=== PATIENT | male | born 1945 | race Caucasian/White ===

== ENCOUNTER 2016-10-09 14:57 | Observation (INO) | payer OTHER ==
--- NOTE | 2016-10-09 15:15 | PDOC ---
History of Present Illness - General History Source: Patient, Manifold Builder Used Exam Limitations: No Limitations, Language Barrier - History of Present Illness Initial Comments: 10/09/16 15:55 The patient is a 70 year old male brought via EMS, with a significant past medical history of varicose veins in left lower extremity, who presents to the emergency department with chest pain for the past 8 hours. He describes his chest pain as a pressure/squeezing type of sensation, localized on the left side of his chest pain, without radiation or modifying factors. He states that he was sitting when the pain started, lasting roughly 3 hours and has subsided in intensity. He denies taking anything for the pain. He states that he get chest pains usually every 3-4 months, which he attributes to stress. He denies ever having a stress test. He states that his family doctor advised that he see a bartender server for a workup but the patient decided against it as he was feeling better. He states that he takes a daily baby aspirin but no other medications. A assembler deck and hull was used for this patient interaction. [place] mcallister ID# [id number] The patient denies shortness of breath, headache and dizziness. Denies fever, chills, nausea, vomit, diarrhea and constipation. Allergies: None Past surgical history: Left lower extremity surgery Social history: He reports occasional alcohol use. No tobacco or drug use reported <Malik Manning - Last Filed: 10/09/16 16:46> - General History Source: Manifold Builder Used <Herman Dumont - Last Filed: 10/09/16 17:34> - General Chief Complaint: Chest Pain Stated Complaint: CHEST PAIN Time Seen by Provider: 10/09/16 15:12 Past History <Malik Manning - Last Filed: 10/09/16 16:46> <Herman Dumont - Last Filed: 10/09/16 17:34> - Past Medical History Allergies/Adverse Reactions: Allergies Allergy/AdvReac Type Severity Reaction Status Date / Time No Known Allergies Allergy Verified 10/09/16 15:20 Home Medications: Ambulatory Orders Aspirin [Aspirin EC] 81 mg PO DAILY 10/09/16 Review of Systems - Review of Systems Constitutional: No: Chills, Fever Respiratory: No: Cough, Shortness of Breath Cardiac (ROS): Yes: Chest Pain. No: Lightheadedness ABD/GI: No: Nausea, Vomiting Integumentary: No: Rash All Other Systems: Reviewed and Negative <Herman Dumont - Last Filed: 10/09/16 17:34> *Physical Exam - Vital Signs Last Vital Signs Temp Pulse Resp BP Pulse Ox 97.4 F L 85 18 146/80 100 10/09/16 14:57 10/09/16 14:57 10/09/16 14:57 10/09/16 14:57 10/09/16 14:57 - Physical Exam Comments: 10/09/16 15:55 GENERAL: The patient is awake, alert, and fully oriented, in no acute distress. HEAD: Normal with no signs of trauma. EYES: Pupils equal, round and reactive to light, extraocular movements intact, sclera anicteric, conjunctiva clear with no pallor. ENT: Ears normal, nares patent, oropharynx clear without exudates. Moist mucous membranes. NECK: Normal range of motion, supple without lymphadenopathy, JVD, or masses. LUNGS: Breath sounds equal, clear to auscultation bilaterally. No wheeze/ crackles. HEART: Regular rate and rhythm, normal S1 and S2 without murmur or rub. ABDOMEN: Soft/nontender/nondistended. BS wnl. No guarding or rebound. No palpable masses. No hepatosplenomegaly. EXTREMITIES: +Left leg slightly larger than right, trace pretibial edema on the left, varicosities left greater than right. Normal range of motion. No clubbing or cyanosis. No cords, erythema, or tenderness. NEUROLOGICAL: Cranial nerves II through XII grossly intact. Normal speech, normal gait. PSYCH: Normal mood, normal affect. SKIN: Warm, Dry, normal turgor, no rashes or lesions noted. <Malik Manning - Last Filed: 10/09/16 16:46> Heart Score/ECG Review #1 ECG reviewed & interpreted by me at: 15:13 General ECG Interpretation: Sinus Rhythm, Normal Rate (1513), Normal Intervals ( qtc 432), No acute ischemic changes <Heramn Dumont - Last Filed: 10/09/16 17:34> ED Treatment Course - LABORATORY CBC & Chemistry Diagram: 10/09/16 15:54 10/09/16 15:54 - RADIOLOGY Radiograph Interpretation: 10/09/16 16:17 Chest X-Ray Reviewed by: Dr. Faye Gonsalez Impression: No acute cardiopulmonary disease is present. Vascular Study left lower extremity Reviewed by: Dr. Faye Gonsalez Impression: There is no evidence of deep venous thromboses in the left lower extremty. - Medications Given in the ED: ED Medications Discontinued Medications Generic Name Dose Route Start Last Admin Trade Name Angi PRN Reason Stop Dose Admin Aspirin 162 mg 10/09/16 15:19 10/09/16 15:30 Asa - PO 10/09/16 15:20 162 mg ONCE ONE Administration <Malik Manning - Last Filed: 10/09/16 16:46> - LABORATORY CBC & Chemistry Diagram: 10/09/16 15:54 10/09/16 15:54 <Herman Dumont - Last Filed: 10/09/16 17:34> Medical Decision Making - Medical Decision Making 10/09/16 15:40 A portion of this note was documented by scribe services under my direction. I have reviewed the details of the note, within reason, and agree with the documentation with the following case summary and management plan written by me. 70-year-old male with no significant past medical history presents to the ED with chest pain. Patient was in his usual state of normal health, while at work developed left chest squeezing discomfort without any other associated symptoms , symptoms have been persistent for about 3 hours so he presents for evaluation. No history of exertional chest pain or dyspnea, never had a stress test or catheterization, does have chronic left lower extremity varicosities. Vital signs normal. Well-appearing, comfortable Exam is within normal limits other than left lower extremity trace edema with varicosities 70-year-old male with chest pain at rest and nonischemic EKG. Heart score overall was low, but given no history of stress test will rule out ACS. Clinically not consistent with PE, but will need to rule out DVT. Labs, EKG Chest x-ray Aspirin Left lower cavity Doppler Admission for cardiac workup 10/09/16 17:05 Labs wnl, troponin negative, Cr 1.5 without prior available for comparison. CXR wnl. Doppler negative for DVT. Will proceed with admission as planned for cardiac evaluation. 10/09/16 17:[address] Duffy, covered by Dr. Queen. Awaiting callback. <Herman Dumont - Last Filed: 10/09/16 17:34> *DC/Admit/Observation/Transfer - Attestations Scribe Attestion: 10/09/16 15:56 Documentation prepared by Malik Manning, acting as medical technician assistant for Herman Dumont MD. <Malik Manning - Last Filed: 10/09/16 16:46> - Discharge Dispostion Admit: Yes <Herman Dumont - Last Filed: 10/09/16 17:34> Diagnosis at time of Disposition: Precordial chest pain
[2016-10-09] MEDS ORDERED: ASPIRIN 81 MG CHEWABLE TABLETS PO ONE (15:19)
[2016-10-09] MEDS ORDERED: ASPIRIN 81 MG CHEWABLE TABLETS ONE (15:29)
--- NOTE | 2016-10-09 15:44 | EKG ---
Test Reason : Blood Pressure : / mmHG Vent. Rate : 082 BPM Atrial Rate : 082 BPM P-R Int : 146 ms QRS Dur : 080 ms QT Int : 370 ms P-R-T Axes : 040 -05 026 degrees QTc Int : 432 ms NORMAL SINUS RHYTHM NORMAL ECG NO PREVIOUS ECGS AVAILABLE Confirmed by SYLWIA YBARRA MD ([id number]) on 10/09/2016 3:44:23 PM Referred By: Confirmed By:SYLWIA YBARRA MD
[2016-10-09 16:30] LABS: BASOPHIL 0.2 % (0-2.0); EOSINOPHIL 0.9 % (0-4.5); MCH 29.6 pg (25.7-33.7); MCHC 34.4 g/dl (32.0-35.9); MEAN CELL VOLUME 86.1 fl (80-96); MEAN PLT VOLUME 8.2 fl (7.5-11.1); NEUTROPHILS 66.9 % (42.8-82.8); PLATELET COUNT 227 K/MM3 (134-434); RDW 14.2 % (11.9-15.9); WHITE BLOOD COUNT 6.2 K/mm3 (4.0-10.0)
[2016-10-09 16:47] LABS: ALBUMIN 3.9 g/dl (3.4-5.0); ANION GAP 9 (8-16); CALCIUM 9.2 mg/dL (8.5-10.1); CO2 26 mmol/L (21-32); CREATININE 1.5 mg/dL (0.7-1.3); GLUCOSE,RANDOM 98 mg/dL (74-106); MAGNESIUM 2.1 mg/dL (1.8-2.4); SGOT/AST 20 U/L (15-37); SGPT/ALT 24 U/L (12-78)
[2016-10-09 16:48] LABS: INR 1.08 (0.82-1.09); PROTHROMBIN TIME (PATIENT) 11.9 SEC (9.98-11.88)
[2016-10-09 16:51] LABS: ALK PHOS 54 U/L (45-117); BILIRUBIN,TOTAL 0.7 mg/dL (0.2-1.0); TROPONIN I < 0.02 ng/ml (0.00-0.05)
[2016-10-09] MEDS ORDERED: ACETAMINOPHEN 325 MG TABLET (FP) PO PRN (18:10)
[2016-10-09] MEDS ORDERED: RANITIDINE HCL 150 MG TABLET (FP) ONE (18:17)
[2016-10-09] MEDS: RANITIDINE HCL 150 MG TABLET (FP) PO SCH (18:22)
[2016-10-09 19:24] LABS: TROPONIN I < 0.02 ng/ml (0.00-0.05)
[2016-10-09 19:56] VITALS: BMI 33.4
[2016-10-09] MEDS: ATORVASTATIN CA 10 MG TABLET (FP) PO SCH (22:44)
--- NOTE | 2016-10-10 08:07 | HP ---
Admitting History and Physical - Admission History of Present Illness: 70 year old male brought via EMS, with a significant past medical history of varicose veins in left lower extremity, who presents to the emergency department with chest pain for 8 hours. He describes his chest pain as a pressure/squeezing type of sensation, localized on the left side of his chest pain, without radiation or modifying factors. He states that he was sitting when the pain started, lasting roughly 3 hours and has subsided in intensity. He denies taking anything for the pain. He states that he get chest pains usually every 3-4 months, which he attributes to stress. He denies ever having a stress test. He states that his family doctor advised that he see a meat processing center manager for a workup but the patient decided against it as he was feeling better. He states that he takes a daily baby aspirin but no other medications. This am pt denies any chest pain - Past Medical History Cardiovascular: Yes: Other (varicose veins). No: HTN, Hyperlipdemia Pulmonary: No: COPD Gastrointestinal: No: Cancer - Smoking History Smoking history: Never smoked Have you smoked in the past 12 months: No - Alcohol/Substance Use Hx Alcohol Use: No Home Medications - Allergies Allergies/Adverse Reactions: Allergies Allergy/AdvReac Type Severity Reaction Status Date / Time No Known Allergies Allergy Verified 10/09/16 15:20 - Home Medications Home Medications: Ambulatory Orders Aspirin [Aspirin EC] 81 mg PO DAILY 10/09/16 Review of Systems - Review of Systems Cardiovascular: reports: Chest Pain, Palpitations. denies: Edema, Shortness of Breath Respiratory: denies: SOB on Exertion Gastrointestinal: reports: No Symptoms Genitourinary: reports: No Symptoms Physical Examination Vital Signs: Vital Signs Temperature 97 F L 10/10/16 06:00 Pulse Rate 67 10/10/16 06:00 Respiratory Rate 20 10/10/16 06:00 Blood Pressure 126/77 10/10/16 06:00 O2 Sat by Pulse Oximetry (%) 94 L 10/10/16 03:30 Cardiovascular: Yes: Regular Rate and Rhythm Respiratory: Yes: Regular, CTA Bilaterally Gastrointestinal: Yes: Normal Bowel Sounds, Soft Extremities: Yes: Other (varicose veins) Edema: Yes Edema: LLE: 1+ Neurological: Yes: Alert, Oriented Imaging - Results Ultrasound: Report Reviewed (neg for dvt) Problem List - Problems (1) Precordial chest pain Assessment/Plan: CE NEGATIVE ECHO AND STRESS TEST CARDIO CHECK LIPIDS STATIN Code(s): R07.2 - PRECORDIAL PAIN (2) Varicose vein of leg Code(s): I83.90 - ASYMPTOMATIC VARICOSE VEINS OF UNSPECIFIED LOWER EXTREMITY (3) Renal insufficiency Assessment/Plan: REPEAT Code(s): N28.9 - DISORDER OF KIDNEY AND URETER, UNSPECIFIED
[2016-10-10 08:47] LABS: CHOLESTEROL 219 mg/dL (50-200)
[2016-10-10 09:37] LABS: LDL CHOLESTEROL (ONLY SJRH) 151 mg/dL (5-100)
[2016-10-10 09:43] LABS: ALBUMIN 3.5 g/dl (3.4-5.0); ANION GAP 10 (8-16); CALCIUM 8.4 mg/dL (8.5-10.1); CO2 25 mmol/L (21-32); CREATININE 0.9 mg/dL (0.7-1.3); GLUCOSE,RANDOM 84 mg/dL (74-106); SGOT/AST 18 U/L (15-37); SGPT/ALT 22 U/L (12-78)
[2016-10-10 09:53] LABS: ALK PHOS 49 U/L (45-117); BILIRUBIN,TOTAL 0.8 mg/dL (0.2-1.0); THYROID STIMULATING HORMONE 0.77 uIU/ml (0.358-3.74); TOT PROT 6.5 g/dl (6.4-8.2)
--- NOTE | 2016-10-10 09:55 | CON.CARD ---
Consult Consult Specialty:: Cardiology Referred by:: Dr. Queen Reason for Consultation:: Cardiac evaluation - History of Present Illness Chief Complaint: Chest pain History of Present Illness: Patient is a 70 year old male of [place] descent with underlying history of varicose vein in left lower extremity and hypercholesterolemia who presents with chest pressure in the mid substernum and left side of the chest without radiation. He denies shortness of breath or palpitations. Denies paroxysmal nocturnal dyspnea or orthopnea. Denies fever or chills. Denies headache or lightheadedness. Cardiology consultation was called for further evaluation. He has not seen a spanish lecturer in the past. - History Source History Provided By: Patient, Medical Record Limitations to Obtaining History: Language Barrier (Done with an credit collections clerk) - Past Medical History Cardio/Vascular: Yes: Hyperlipdemia, Other (varicose veins) - Past Surgical History Additional Surgical History: Varicose vein surgery - Alcohol/Substance Use Hx Alcohol Use: Yes History of Substance Use: reports: None - Smoking History Smoking history: Never smoked Have you smoked in the past 12 months: No Home Medications - Allergies Allergies/Adverse Reactions: Allergies Allergy/AdvReac Type Severity Reaction Status Date / Time No Known Allergies Allergy Verified 10/09/16 15:20 - Home Medications Home Medications: Ambulatory Orders Aspirin [Aspirin EC] 81 mg PO DAILY 10/09/16 Family Disease History - Family Disease History Family Disease History: Other: Father (varicose vein) Review of Systems - Review of Systems Constitutional: denies: Chills, Fever Cardiovascular: reports: Chest Pain. denies: Palpitations, Shortness of Breath Respiratory: denies: Cough, Hemoptysis, Orthopnea, PND, SOB, SOB on Exertion Gastrointestinal: denies: Abdominal Pain, Constipation, Diarrhea, Melena, Nausea , Rectal Bleeding, Vomiting Genitourinary: denies: Dysuria Musculoskeletal: denies: Joint Pain Neurological: denies: Dizziness, Headache, Seizure, Syncope Vital Signs: Vital Signs Temperature 97 F L 10/10/16 06:00 Pulse Rate 67 10/10/16 06:00 Respiratory Rate 20 10/10/16 06:00 Blood Pressure 126/77 10/10/16 06:00 O2 Sat by Pulse Oximetry (%) 94 L 10/10/16 03:30 Neck: Yes: Supple Respiratory: Yes: CTA Bilaterally Gastrointestinal: Yes: Normal Bowel Sounds, Soft. No: Tenderness Cardiovascular: Yes: Regular Rate and Rhythm JVD: No Carotid Bruit: No PMI: Non-Displaced Heart Sounds: Yes: S1, S2 Edema: No - Other Data Labs, Other Data: CBC, BMP 10/10/16 06:06 INR, PTT INR 1.08 (0.82-1.09) 10/09/16 15:54 Troponin, BNP 10/09/16 18:37 Troponin I < 0.02 Laboratory Results - last 24 hr 10/09/16 10/09/16 10/09/16 15:54 15:54 15:54 WBC 6.2 RBC 4.70 Hgb 13.9 Hct 40.4 MCV 86.1 MCHC 34.4 RDW 14.2 Plt Count 227 MPV 8.2 Neutrophils % 66.9 Lymphocytes % 20.6 Monocytes % 11.4 H Eosinophils % 0.9 Basophils % 0.2 INR 1.08 Sodium 144 Potassium 4.2 Chloride 109 H Carbon Dioxide 26 Anion Gap 9 BUN 19 H Creatinine 1.5 H Creat Clearance w eGFR 46.40 Random Glucose 98 Hemoglobin A1c % Calcium 9.2 Magnesium 2.1 Total Bilirubin 0.7 AST 20 ALT 24 Alkaline Phosphatase 54 Creatine Kinase 71 Troponin I < 0.02 Total Protein 7.0 Albumin 3.9 Triglycerides Cholesterol Total LDL Cholesterol HDL Cholesterol TSH 10/10/16 06:06 WBC RBC Hgb Hct MCV MCHC RDW Plt Count MPV Neutrophils % Lymphocytes % Monocytes % Eosinophils % Basophils % INR Sodium 146 H Potassium 4.0 Chloride 111 H Carbon Dioxide 25 Anion Gap 10 BUN 16 Creatinine 0.9 D Creat Clearance w eGFR > 60 Random Glucose 84 Hemoglobin A1c % Calcium 8.4 L Magnesium Total Bilirubin 0.8 AST 18 ALT 22 Alkaline Phosphatase 49 Creatine Kinase Troponin I Total Protein 6.5 Albumin 3.5 Triglycerides 137 Cholesterol 219 H Total LDL Cholesterol 151 H HDL Cholesterol 56 TSH 0.77 Sin[address] rhythm with no ST-T abnormality Echo: Pending Imaging - Results Chest X-ray: Report Reviewed (Unremarkable) EKG: Report Reviewed Problem List - Problems (1) Precordial chest pain Code(s): R07.2 - PRECORDIAL PAIN (2) Varicose vein of leg Code(s): I83.90 - ASYMPTOMATIC VARICOSE VEINS OF UNSPECIFIED LOWER EXTREMITY (3) Hypercholesterolemia Code(s): E78.0 - PURE HYPERCHOLESTEROLEMIA * DO NOT USE * Assessment/Plan 1. Chest pain syndrome rule out CAD 2. Hypercholesterolemia 3. Varicose vein PLAN: 1. Nuclear myocardial perfusion imaging already scheduled 2. Transthoracic echocardiography to assess LV and valvular function 3. Continue ASA 4. Continue Atorvastatin Further plans are to follow Conor Livingston MD
[2016-10-10] MEDS: RANITIDINE HCL 150 MG TABLET (FP) PO SCH (17:02)
[2016-10-10] MEDS: ASPIRIN COATED 81 MG TABLET.EC PO SCH (17:02)
[2016-10-10] MEDS: METOPROLOL SUCCINATE 25 MG TAB.SR.24H (FP) PO SCH (17:03)
[2016-10-10] MEDS: ATORVASTATIN CA 10 MG TABLET (FP) PO SCH (22:04)
--- NOTE | 2016-10-11 09:15 | PN ---
Progress Note, Physician History of Present Illness: denies any cp no sob - Current Medication List Current Medications: Active Medications Acetaminophen (Tylenol -) 650 mg PO Q6H PRN PRN Reason: FEVER OR PAIN Aspirin (Ecotrin -) 81 mg PO DAILY [facility] Last Admin: 10/10/16 17:02 Dose: 81 mg Atorvastatin Calcium (Lipitor -) 10 mg PO HS [facility] Last Admin: 10/10/16 22:04 Dose: 10 mg Metoprolol Succinate (Toprol Xl -) 25 mg PO DAILY [facility] Last Admin: 10/10/16 17:03 Dose: 25 mg Ranitidine HCl (Zantac -) 150 mg PO DAILY [facility] Last Admin: 10/10/16 17:02 Dose: 150 mg - Objective Vital Signs: Vital Signs Temperature 97 F L 10/11/16 06:00 Pulse Rate 55 L 10/11/16 06:00 Respiratory Rate 20 10/11/16 06:00 Blood Pressure 110/69 10/11/16 06:00 O2 Sat by Pulse Oximetry (%) 98 10/10/16 21:01 Cardiovascular: Yes: Regular Rate and Rhythm Respiratory: Yes: Regular, CTA Bilaterally Gastrointestinal: Yes: Normal Bowel Sounds, Soft Labs: CBC, BMP 10/10/16 06:06 INR, PTT INR 1.08 (0.82-1.09) 10/09/16 15:54 Problem List - Problems (1) Precordial chest pain Assessment/Plan: SRESS TEST POSITIVE ISCHEMIA CE NEGATIVE CARDIO ON BOARD CHECK LIPIDS STATIN/BB/ASA Code(s): R07.2 - PRECORDIAL PAIN (2) Varicose vein of leg Code(s): I83.90 - ASYMPTOMATIC VARICOSE VEINS OF UNSPECIFIED LOWER EXTREMITY (3) Renal insufficiency Assessment/Plan: REPEAT IMPROVED Code(s): N28.9 - DISORDER OF KIDNEY AND URETER, UNSPECIFIED
[2016-10-11] MEDS: ASPIRIN COATED 81 MG TABLET.EC PO SCH (10:37)
--- NOTE | 2016-10-11 10:37 | PN ---
Progress Note, Physician History of Present Illness: No further chest pain. - Current Medication List Current Medications: Active Medications Acetaminophen (Tylenol -) 650 mg PO Q6H PRN PRN Reason: FEVER OR PAIN Aspirin (Ecotrin -) 81 mg PO DAILY [facility] Last Admin: 10/10/16 17:02 Dose: 81 mg Atorvastatin Calcium (Lipitor -) 10 mg PO HS [facility] Last Admin: 10/10/16 22:04 Dose: 10 mg Metoprolol Succinate (Toprol Xl -) 25 mg PO DAILY [facility] Last Admin: 10/10/16 17:03 Dose: 25 mg Ranitidine HCl (Zantac -) 150 mg PO DAILY [facility] Last Admin: 10/10/16 17:02 Dose: 150 mg - Objective Vital Signs: Vital Signs Temperature 98.2 F 10/11/16 10:00 Pulse Rate 74 10/11/16 10:00 Respiratory Rate 14 10/11/16 10:00 Blood Pressure 114/62 10/11/16 10:00 O2 Sat by Pulse Oximetry (%) 98 10/10/16 21:01 Constitutional: Yes: No Distress, Calm Neck: Yes: Supple Cardiovascular: Yes: Regular Rate and Rhythm Respiratory: Yes: Regular, CTA Bilaterally Gastrointestinal: Yes: Normal Bowel Sounds, Soft Edema: No Labs: CBC, BMP 10/10/16 06:06 INR, PTT INR 1.08 (0.82-1.09) 10/09/16 15:54 Problem List - Problems (1) Hypercholesterolemia Code(s): E78.0 - PURE HYPERCHOLESTEROLEMIA * DO NOT USE * (2) Abnormal cardiovascular stress test Code(s): R94.39 - ABNORMAL RESULT OF OTHER CARDIOVASCULAR FUNCTION STUDY Assessment/Plan 10/10/2016 Nuclear myocardial perfusion scan revealed apical ischemia with LVEF 62% and ST depression in inferolateral leads. 10/10/2016 Echo: Normal LV size and fxn, mod TR, mild MR, VT, AR 1. CAD, abnl MPI 2. Hypercholesterolemia 3. Varicose vein PLAN: 1. Plan for [facility] to assess severity of CAD 2. Continue ASA 81 qd, Toprol XL 25 qd, Lipitor 10 qhs 3. Further recommendations to follow pending above study results.
[2016-10-11] MEDS: RANITIDINE HCL 150 MG TABLET (FP) PO SCH (10:38)
[2016-10-11] MEDS: METOPROLOL SUCCINATE 25 MG TAB.SR.24H (FP) PO SCH (10:39)
[2016-10-11] MEDS ORDERED: ATORVASTATIN CA 40 MG TABLET (FP) PO SCH (14:23)
[2016-10-12 08:14] VITALS: BP 116/64; PULSE 60; TEMP 98.2
--- NOTE | 2016-10-12 08:59 | PN ---
Progress Note, Physician Chief Complaint: Not in distress this am History of Present Illness: Patient was seen and examined. Awake and alert. Chart was reviewed Denies chest pain, SOB or palpitations Await transfer to [facility] for cardiac catheterization today - Current Medication List Current Medications: Active Medications Acetaminophen (Tylenol -) 650 mg PO Q6H PRN PRN Reason: FEVER OR PAIN Aspirin (Ecotrin -) 81 mg PO DAILY [facility] Last Admin: 10/11/16 10:37 Dose: 81 mg Atorvastatin Calcium (Lipitor -) 40 mg PO HS [facility] Last Admin: 10/11/16 21:58 Dose: 40 mg Metoprolol Succinate (Toprol Xl -) 25 mg PO DAILY [facility] Last Admin: 10/11/16 10:39 Dose: 25 mg Ranitidine HCl (Zantac -) 150 mg PO DAILY [facility] Last Admin: 10/11/16 10:38 Dose: 150 mg - Objective Vital Signs: Vital Signs Temperature 98.2 F 10/12/16 08:13 Pulse Rate 60 10/12/16 08:13 Respiratory Rate 14 10/12/16 08:13 Blood Pressure 116/64 10/12/16 08:13 O2 Sat by Pulse Oximetry (%) 96 10/11/16 22:00 Neck: Yes: Supple Cardiovascular: Yes: Regular Rate and Rhythm, S1, S2 Respiratory: Yes: CTA Bilaterally Gastrointestinal: Yes: Normal Bowel Sounds, Soft. No: Tenderness Edema: No Additional Findings/Remarks: - Review of Systems Constitutional: denies: Chills, Fever Cardiovascular: reports: Chest Pain. denies: Palpitations, Shortness of Breath Respiratory: denies: Cough, Hemoptysis, Orthopnea, PND, SOB, SOB on Exertion Gastrointestinal: denies: Abdominal Pain, Constipation, Diarrhea, Melena, Nausea , Rectal Bleeding, Vomiting Genitourinary: denies: Dysuria Musculoskeletal: denies: Joint Pain Neurological: denies: Dizziness, Headache, Seizure, Syncope Problem List - Problems (1) Precordial chest pain Code(s): R07.2 - PRECORDIAL PAIN (2) Varicose vein of leg Code(s): I83.90 - ASYMPTOMATIC VARICOSE VEINS OF UNSPECIFIED LOWER EXTREMITY (3) Hypercholesterolemia Code(s): E78.0 - PURE HYPERCHOLESTEROLEMIA * DO NOT USE * (4) Abnormal cardiovascular stress test Code(s): R94.39 - ABNORMAL RESULT OF OTHER CARDIOVASCULAR FUNCTION STUDY (5) CAD (coronary artery disease) Code(s): I25.10 - ATHSCL HEART DISEASE OF [place] CORONARY ARTERY W/O ANG PCTRS Assessment/Plan 1. Chest pain syndrome with abnormal nuclear myocardial perfusion imaging and ischemic ECG changes 2. Hypercholesterolemia 3. Varicose vein PLAN: 1. Proceed with cardiac catheterization/coronary angiography as planned 2. Continue Metoprolol ER 3. Continue ASA 4. Continue Atorvastatin Further plans are to follow Conor Livingston MD
[2016-10-12] MEDS: RANITIDINE HCL 150 MG TABLET (FP) PO SCH (09:23)
[2016-10-12] MEDS: ASPIRIN COATED 81 MG TABLET.EC PO SCH (09:23)
[2016-10-12] MEDS: METOPROLOL SUCCINATE 25 MG TAB.SR.24H (FP) PO SCH (09:23)
--- NOTE | 2016-10-12 10:20 | DS ---
Physical Examination Vital Signs: Vital Signs Temperature 98.2 F 10/12/16 08:13 Pulse Rate 60 10/12/16 08:13 Respiratory Rate 14 10/12/16 08:13 Blood Pressure 116/64 10/12/16 08:13 O2 Sat by Pulse Oximetry (%) 96 10/11/16 22:00 awake alert no chest pain no distress Constitutional: Yes: Calm Neck: Yes: Trachea Midline Cardiovascular: Yes: Regular Rate and Rhythm, S1, S2 Respiratory: Yes: CTA Bilaterally Gastrointestinal: Yes: Normal Bowel Sounds, Soft Extremities: Yes: Other (variocse veins, left leg surgical scars) Edema: No Labs: CBC, BMP 10/10/16 06:06 Discharge Summary Reason For Visit: CHEST PAIN Current Active Problems Abnormal cardiovascular stress test (Acute) CAD (coronary artery disease) (Acute) Hypercholesterolemia (Acute) Precordial chest pain (Acute) Renal insufficiency (Acute) Varicose vein of leg (Acute) Hospital Course: 70 year old male brought via EMS, with a significant past medical history of varicose veins in left lower extremity, who presents to the emergency department with chest pain for 8 hours. He describes his chest pain as a pressure/squeezing type of sensation, localized on the left side of his chest pain, without radiation or modifying factors. He states that he was sitting when the pain started, lasting roughly 3 hours and has subsided in intensity. He denies taking anything for the pain. He states that he get chest pains usually every 3-4 months, which he attributes to stress. He denies ever having a stress test. He states that his family doctor advised that he see a non categorical preschool teacher for a workup but the patient decided against it as he was feeling better. He states that he takes a daily baby aspirin but no other medications. patient admitted to [facility] had stress test - abnormal small reversible apical ischemia noted, plan is to transfer to [facility] for cath cotniue asa,BB and liptor dose increased given inc TG and cholesterol currently NPO awaiting transfer - Instructions Disposition: TRANSFER ACUTE CARE/OTHER HOSP - Home Medications Comprehensive Discharge Medication List: Ambulatory Orders Aspirin [Aspirin EC] 81 mg PO DAILY 10/09/16
--- NOTE | 2016-10-13 10:06 | PN ---
Progress Note (short form) - Note Progress Note: LHC at [facility]/[place] demonstrated 90-95% distal LM, 40-50% mid RCA, normal LV fxn with normal LVEDP, no aortic stenosis, transferred to [facility] for CABG, plan of care d/w patient and family and they were agreeable. He remained hemodynamically stable prior to transfer, heparin gtt started once hemostasis achieved. Problem List - Problems (1) Hypercholesterolemia Code(s): E78.0 - PURE HYPERCHOLESTEROLEMIA * DO NOT USE * (2) Abnormal cardiovascular stress test Code(s): R94.39 - ABNORMAL RESULT OF OTHER CARDIOVASCULAR FUNCTION STUDY
== END 2016-10-12 14:36 | disposition short-term general hospital (02) ==
LOC: JER 14:57 → JERBED 17:08 → UNDOADMOB 17:38 → J4W 22:28
PROVIDERS: ADMIT Family Medicine; ATTEND Family Medicine
DX: I25.10 Atherosclerotic heart disease of native coronary artery without angina pectoris (principal); R07.2 Precordial pain; I83.90 Asymptomatic varicose veins of unspecified lower extremity; N28.9 Disorder of kidney and ureter, unspecified; E78.5 Hyperlipidemia, unspecified; R94.39 Abnormal result of other cardiovascular function study
CPT/HCPCS: 36415; 71010-TC; 78452-TC; 80053; 80061; 82550; 83036; 83721; 83735; 84443; 84484; 85025; 85610; 93005; 93010; 93017; 93306-TC; 93971-TC; 99283-25; A9502; G0378